=== PATIENT | female | born 2000 | race Two or more races ===

== ENCOUNTER 2019-10-28 23:36 | Emergency (ER) | payer SELFPAY ==
[~2019-10-28] VITALS: Ht 152.4 cm; Wt 63.6 kg
[2019-10-29] MEDS ORDERED: IV NORMAL SALINE 500ML BAG 500 ML IV ONE
[2019-10-29 00:08] LABS: BASO # 0.1 x10^3/uL (0.0-0.2); BASO % 1 % (0-3); EOS # 0.1 x10^3/uL (0.0-0.7); EOS % 1 % (0-3); HEMATOCRIT 42.4 % (36.0-47.0); LYMPH # 4.6 x10^3/uL (1.0-4.8); LYMPH % 39 % (24-48); MEAN CORPUSCULAR HEMOGLOBIN 27 pg (25-35); MEAN CORPUSCULAR HGB CONC 33 g/dL (31-37); MEAN CORPUSCULAR VOLUME 82 fL (79-100); MONO # 0.8 x10^3/uL (0.0-1.1); MONO % 7 % (0-9); NEUT # 6.3 x10^3/uL (1.8-7.7); NEUT % 52 % (31-73); PLATELET COUNT 298 x10^3/uL (140-400); RED BLOOD COUNT 5.15 x10^6/uL (3.50-5.40); RED CELL DISTRIBUTION WIDTH 12.8 % (11.5-14.5); WHITE BLOOD COUNT 11.9 x10^3/uL (4.0-11.0)
--- NOTE | 2019-10-29 00:08 | PHYS DOC ---
General Adult EDM: Chief Complaint: SYNCOPE HPI: HPI: Patient is a 19 year old female who presents with syncope. The patient is a 19-year-old [id number] female who arrives in the emergency department accompanied by some young gentleman. She arrived unresponsive per the nursing staff but by the time that I saw her a few minutes after her arrival she was a GCS of 15. Patient reports to me that she was with her friends and began to have some chest discomfort which she describes as a "funny feeling". This was followed by rapid breathing, dizziness, tingling in the face and hands as well as nausea. This was followed by syncope. Patient reports that she has had this problem in the past. She also reports that she felt a sense of doom at the time of onset. Currently she remains somewhat anxious and denies any pain in the abdomen, chest, pelvis, head, neck or back. Review of Systems: Review of Systems: Constitutional: Denies fever or chills. [] Eyes: Denies change in visual acuity. [] HENT: Denies nasal congestion or sore throat. [] Respiratory: Denies cough or shortness of breath. [] Cardiovascular: Denies chest pain or edema. [] GI: Denies abdominal pain, nausea, vomiting, bloody stools or diarrhea. [] : Denies dysuria. [] Musculoskeletal: Denies back pain or joint pain. [] Integument: Denies rash. [] Neurologic: Denies headache, focal weakness or sensory changes. [] Endocrine: Denies polyuria or polydipsia. [] Lymphatic: Denies swollen glands. [] Psychiatric: See HPI. [] Heart Score: HEART Score for Chest Pain: HEART Score for Chest Pain Response (Comments) Value History Slighlty/Non-Suspicious 0 ECG Normal 0 Age < 45 0 Risk Factors No Risk Factors 0 Troponin < Normal Limit 0 Total 0 Risk Factors: Risk Factors: DM, Current or recent (<one month) smoker, HTN, HLP, family history of CAD, obesity. Risk Scores: Score 0 - 3: 2.5% MACE over next 6 weeks - Discharge Home Score 4 - 6: 20.3% MACE over next 6 weeks - Admit for Clinical Observation Score 7 - 10: 72.7% MACE over next 6 weeks - Early Invasive Strategies Current Medications: Current Medications Medications (Trade) Dose Ordered Sig/Alexander Start Time Stop Time Status Last Admin Dose Admin Sodium Chloride 500 ml @ 500 mls/hr 1X ONCE 10/29/19 00:00 10/29/19 00:59 UNV Physical Exam: PE: Constitutional: Well developed, well nourished, no acute distress, non-toxic appearance. [] HENT: Normocephalic, atraumatic, bilateral external ears normal, oropharynx moist, no oral exudates, nose normal. [] Eyes: PERRLA, EOMI, conjunctiva normal, no discharge. [] Neck: Normal range of motion, no tenderness, supple, no stridor. [] Cardiovascular:Heart rate regular rhythm, no murmur [] Lungs & Thorax: Bilateral breath sounds clear to auscultation [] Abdomen: Bowel sounds normal, soft, no tenderness, no masses, no pulsatile masses. [] Skin: Warm, dry, no erythema, no rash. [] Back: No tenderness, no CVA tenderness. [] Extremities: No tenderness, no cyanosis, no clubbing, ROM intact, no edema. [] Neurologic: Alert and oriented X 3, normal motor function, normal sensory function, no focal deficits noted. [] Psychologic: Anxious affect, judgement normal, mood anxious. [] EKG: EKG: Heart rate of 83, normal axis, normal intervals, sinus rhythm, normal ECG [] Radiology/Procedures: Radiology/Procedures: [] Course & Med Decision Making: Course & Med Decision Making Pertinent Labs and Imaging studies reviewed. (See chart for details) 0218-patient was seen and reevaluated. Patient symptoms have now resolved. She reports that she feels much better after the Xanax. I discussed with her the likelihood that she is suffering from generalized anxiety disorder with panic attacks. This was done through the aid of an distillery worker general. There was a language barrier present. However I think the patient is stable for discharge and does not have any exigent medical or surgical problem. I discussed reasons to return, treatment plan and need for follow-up. [] Dragon Disclaimer: Dragkevyn Disclaimer: This electronic medical record was generated, in whole or in part, using a voice recognition dictation system. Departure Departure Impression: Primary Impression: Panic attack Additional Impression: DARÍO (generalized anxiety disorder) Disposition: 01 HOME, SELF-CARE Condition: IMPROVED Referrals: NO PCP (PCP) Patient Instructions: Anxiety and Panic Attacks Additional Instructions: Please see the resource sheet for mental health follow-up. Otherwise follow-up with your primary care physician. Scripts Alprazolam (XANAX) 0.5 Mg Tablet 0.5 MG PO PRN Q6HRS PRN for ANXIETY / AGITATION, #10 TAB 0 Refills Prov: JONG DANGELO MD 10/29/19 Justicifation of Admission Dx: Justifications for Admission: Justification of Admission Dx: N/A JONG DANGELO MD Oct 29, 2019 00:08
[2019-10-29 00:16] LABS: CALCIUM 9.7 mg/dL (8.5-10.1); CREATININE 0.6 mg/dL (0.6-1.0); GFR 126.2; POTASSIUM 3.7 mmol/L (3.5-5.1)
[2019-10-29 00:17] LABS: BILIRUBIN,URINE NEGATIVE (NEG); CLARITY,URINE CLEAR; COLOR,URINE YELLOW; NITRITE,URINE NEGATIVE (NEG); PROTEIN,URINE NEGATIVE (NEG-TRACE); UROBILINOGEN,URINE 0.2 mg/dL (0.2 mg/dL)
[2019-10-29 00:22] LABS: ALBUMIN/GLOBULIN RATIO 1.1 (1.0-1.7); TOTAL BILIRUBIN 0.2 mg/dL (0.2-1.0); TOTAL PROTEIN 7.5 g/dL (6.4-8.2)
[2019-10-29 00:25] LABS: BACTERIA,URINE FEW /HPF (0-FEW); RBC,URINE RARE /HPF (0-2); SQUAMOUS EPITHELIAL CELL,UR MOD /LPF
[2019-10-29] MEDS ORDERED: ALPRAZolam 0.5 MG TABLET PO ONE (00:45)
[2019-10-29 00:50] LABS: U PREG PATIENT NEGATIVE (NEG)
[2019-10-29] MEDS ORDERED: ALPR0.5T PO (02:16)
[2019-10-29 02:20] VITALS: BP 109/69
--- NOTE | 2019-10-29 09:31 | EKG ---
[facility] [address] [place] [address] Test Date: 2019-10-28 Test Time: 23:50:01 Pat Name: PRESLEY DREW Department: Room: Gender: F [employer]: : 2000 Requested By: JONG DANGELO Order Number: [id number] Reading MD: Measurements Intervals Borden Rate: 83 P: 31 MA: 138 QRS: 45 QRSD: 86 T: 44 QT: 350 QTc: 412 Interpretive Statements SINUS RHYTHM NORMAL ECG RI6.01 No previous ECG available for comparison
== END 2019-10-29 02:35 | disposition home or self-care (01) ==
LOC: ER 23:36
DX: F41.0 Panic disorder [episodic paroxysmal anxiety] (principal); F41.1 Generalized anxiety disorder; R55 Syncope and collapse; R07.89 Other chest pain; R42 Dizziness and giddiness
CPT/HCPCS: 36415; 80053; 81001; 81025; 82962; 83690; 84484; 85025; 87086; 93005; 96360; 99285; J7040